=== PATIENT | female | born 1930 ===

== ENCOUNTER → 2017-06-14 17:58 | Outpatient (CLI) | payer MEDICARE ==
[2017-06-14 19:14] LABS: ANION GAP 3.6 mmol/L (8-16); CALCIUM 8.7 mg/dL (8.5-10.1); CARBON DIOXIDE 35.1 mmol/L (21.0-32.0); CREATININE - SERUM 2.5 mg/dL (0.6-1.3); POTASSIUM - SERUM 3.7 mmol/L (3.5-5.1)
== END | disposition home or self-care (01) ==
LOC: D.LABREF 17:58
PROVIDERS: Internal Medicine Hematology & Oncology
DX: N18.4 Chronic kidney disease, stage 4 (severe) (principal)